=== PATIENT | male | born 1960 | race Caucasian/White ===

== ENCOUNTER 2018-11-03 10:50 | Outpatient (CLI) | payer OTHER ==
[2018-11-03 11:50] LABS: BASOPHILS % 6.2 (0.0-1.5); EOSINOPHILS % 1.7 % (0.0-6.8); MEAN CORPUSCULAR HEMOGLOBIN 32.1 pg (28.0-34.0); MONOCYTES % 9.5 % (0.0-11.0); NEUTROPHILS # 3.5 # k/uL (1.4-7.7)
[2018-11-03 12:22] LABS: eGFR (Non-African) > 60
== END 2018-11-03 10:52 ==
LOC: RT 10:50
PROVIDERS: ATTEND Family Medicine
DX: R07.9 Chest pain, unspecified (principal)
CPT/HCPCS: 36415; 80053; 80061; 84484; 85025; 85379

== ENCOUNTER 2018-12-14 07:04 | Outpatient (CLI) | payer OTHER ==
[2018-12-14 08:20] LABS: eGFR (Non-African) > 60
== END 2018-12-14 07:05 ==
LOC: LAB 07:04
PROVIDERS: ATTEND Family Medicine
DX: R94.5 Abnormal results of liver function studies (principal); R73.9 Hyperglycemia, unspecified
CPT/HCPCS: 36415; 80053; 83036; 86704; 86706; 86709; 86803; 87340